=== PATIENT | female | born 1975 | race Caucasian/White ===

== ENCOUNTER 2018-03-21 19:53 | Emergency (ER) | payer MEDICAID ==
[2018-03-21 23:13] LABS: URINE BLOOD (Dip) POC 2+ (NEGATIVE); URINE GLUCOSE (Dip) POC Negative (NEGATIVE); URINE KETONES (Dip) POC Negative (NEGATIVE); URINE LEUKOCYTE EST (Dip) POC Negative (NEGATIVE); URINE NITRITE (Dip) POC Negative (NEGATIVE); URINE TOTAL PROTEIN POC Negative (NEGATIVE)
== END 2018-03-22 00:42 | disposition home or self-care (01) ==
LOC: FTE 03-22 00:42
DX: J30.9 Allergic rhinitis, unspecified (principal)
CPT/HCPCS: 81003; 81025; 99283

== ENCOUNTER 2018-11-11 10:57 | Emergency (ER) | payer MEDICAID | END 2018-11-11 12:01 | disposition home or self-care (01) | LOC: FTE 12:01 | DX: K64.4 Residual hemorrhoidal skin tags (principal) | CPT/HCPCS: 99284; Z7502 ==